=== PATIENT | female | born 2005 | race Caucasian/White ===

== ENCOUNTER 2024-11-25 16:50 | Emergency (ER) | payer OTHER ==
[2024-11-25 18:50] LABS: PLATELET COUNT,PLT 259 K/uL (130-375); RED BLOOD CELL COUNT 4.69 M/uL (3.77-5.24); WHITE BLOOD CELL COUNT,WBC 12.8 K/uL (3.2-11.0)
[2024-11-25 19:05] LABS: BLOOD UREA NITROGEN,BUN 11.0 mg/dL (7-18); CARBON DIOXIDE,CO2 31.0 mmol/L (21-32); CHLORIDE,CL 99.0 mmol/L (100-108); CREATININE 1.0 mg/dL (0.6-1.0); EST CRCL DRUG DOSING (CG) 76.85 mL/min; ESTIMATED GFR 82.0 mL/min (>60); GLUCOSE RANDOM 107.0 mg/dL (74-106); POTASSIUM,K 4.1 mmol/L (3.6-5.2); SODIUM,NA 138.0 mmol/L (140-148)
[2024-11-25 19:09] LABS: ATYPICAL LYMPHOCYTES MODERATE; LYMPHOCYTES ABSOLUTE MAN 6.91 K/uL (0.8-3.3); LYMPHOCYTES PERCENT MAN 54 % (24-44); MONOCYTES ABSOLUTE MAN 0.77 K/uL (0.20-0.90); MONOCYTES PERCENT MAN 6 % (2-6); NEUTROPHILS ABSOLUTE MAN 5.12 K/uL (1.0-7.6); SEG NEUTROPHILS PERCENT MAN 40 % (36-66)
[2024-11-25 19:14] LABS: LACTIC ACID 1.2 mmol/L (0.4-2.0)
[2024-11-25] MEDS: Dexamethasone 4 MG/ML SDV IVPUSH ONE (20:17)
== END 2024-11-25 21:26 | disposition home or self-care (01) ==
LOC: JP.ED 16:50
DX: J03.90 Acute tonsillitis, unspecified (principal); Z88.8 Allergy status to other drugs, medicaments and biological substances; Z79.899 Other long term (current) drug therapy; Z86.16 Personal history of COVID-19
CPT/HCPCS: 36415; 80048; 83605; 85025; 87651; 96365; 96375; 99284; A9270; J0696; J1100; J7030